=== PATIENT | female | born 1940 | race Hispanic/Latino ===

== ENCOUNTER 2016-05-14 10:57 | Outpatient (CLI) | payer MEDICARE, MEDICAID ==
--- NOTE | 2016-05-14 13:10 | RAD ---
TWO VIEWS LEFT HIP: Date: 05-14-16 Comparison: None. History: Left hip pain, no history of trauma. FINDINGS: There are degenerative changes involving the left hip including mild/moderate superior joint space n arrowing as well as prominent lateral acetabular osteophyte formation and mild acetabular subchondra l sclerosis. There are also lower lumbar spine degenerative changes seen, not well characterized on this exam. There is no evidence for fracture or dislocation. IMPRESSION: Degenerative change with no displaced fracture or dislocation seen. POS: [facility]
--- NOTE | 2016-05-14 13:16 | RAD ---
FRONTAL AND LATERAL IMAGING OF THE LEFT FEMUR: Date: 05-14-16 Comparison: None. History: Pain, no history of trauma. FINDINGS: There are moderate degenerative changes involving the left hip joint, better assessed on dedicated l eft hip imaging. There is a total knee arthroplasty on the left. No displaced fracture or evidence of dislocation is seen. IMPRESSION: Left hip degenerative joint disease. No femur fracture noted. POS: [facility]
== END 2016-05-14 10:58 | disposition home or self-care (01) ==
LOC: MADRAD 10:57
PROVIDERS: ATTEND Family Medicine
DX: M25.552 Pain in left hip (principal); M16.12 Unilateral primary osteoarthritis, left hip